=== PATIENT | female | born 1985 ===

== ENCOUNTER 2017-02-03 16:19 | Emergency (ER) | payer SELFPAY ==
--- NOTE | 2017-02-11 08:15 | ER ---
ADMIT: 02/03/2017 RM/LOC: ER [facility] MR#: [id number] [facility] [address] [place], [place] [id number] NIDIA HARRIS [address] [place] [address] Emergency Room Report SEX: F AGE: 32 : 1985 DATE: 02/03/2017 A 32-year-old with a headache times past 2 or 3 days. She gets headaches at least once a month. This is similar to this headache. See T-sheet for history and physical. DIAGNOSIS: Headache. She is given prescription for Ultram. Given name of Dr. Benavides to follow up with. Canelo Dukes MD/ karmen JOB #: [id number] CC: Canelo Dukes MD, Attending Physician Shahnaz Benavides MD, Family Physician
== END 2017-02-03 19:09 | disposition home or self-care (01) ==
LOC: ER 16:19
DX: R51 Headache (principal)